=== PATIENT | male | born 1965 | race Caucasian/White ===

== ENCOUNTER 2016-12-30 11:17 | Day surgery (SDC) | payer OTHER ==
[2016-12-30] MEDS ORDERED: LR 1,000 ML IV ONE ×2 (12:05→12:35)
[2016-12-30 12:16] VITALS: PULSE 62
[2016-12-30] MEDS ORDERED: LIDOCAINE 1% 2 ML INJ ONE (12:18)
[2016-12-30] MEDS ORDERED: LIDOCAINE 1% 2 ML INJ ID PRN (12:35)
[2016-12-30] MEDS ORDERED: INDOMETHACIN 50 MG SUPP PR PRN (13:10)
--- NOTE | 2016-12-30 13:10 | PDGENHP ---
History & Physical Chief Complaint: rectal polyp History of Present Illness: 51 year old male presents for surveillance of a complex rectal polyp Pertinent Past, Social, Family History: PMHx: GERD Relevant Physical Exam: HEENT: anicteric. CV: RRR +s1s2. Lungs: CTAB. Abd: soft, nt, + bs Cardiorespiratory Assessment: ASA 2
[2016-12-30] MEDS ORDERED: PROPOFOL 200 MG/20 ML VIAL ONE (13:11)
[2016-12-30] MEDS ORDERED: NS 500 ML IV SCH (13:15)
--- NOTE | 2016-12-30 13:19 | PDANEPAE ---
ANE Past Medical History - Cardiovascular History Hx Hypertension: No Hx Arrhythmias: No Hx Chest Pain: No Hx Coronary Artery / Peripheral Vascular Disease: No Hx CHF / Valvular Disease: No Hx Palpitations: No - Pulmonary History Hx COPD: No Hx Asthma/Reactive Airway Disease: No Hx Recent Upper Respiratory Infection: No Hx Oxygen in Use at Home: No Hx Sleep Apnea: No Sleep Apnea Screening Result - Last Documented: Negative - Neurologic History Hx Cerebrovascular Accident: No Hx Seizures: No Hx Dementia: No - Endocrine History Hx Diabetes: No - Renal History Hx Renal Disorders: No - Liver History Hx Hepatic Disorders: No - Neurological & Psychiatric Hx Hx Neurological and Psychiatric Disorders: No - Cancer History Hx Cancer: No - Congenital Disorder History Hx Congenital Disorders: No - GI History Hx Gastrointestinal Disorders: Yes Gastrointestinal History Comment: HICCOUGHS - Other Health History Other Health History: CHILDHOOD ECZEMA - Chronic Pain History Chronic Pain: No - Surgical History Prior Surgeries: COLONOSCOPIES X2. KNEE ACL L X2 ANE Review of Systems Review of Systems: - Exercise capacity METS (RN): 5 METS ANE Patient History - Allergies Allergies/Adverse Reactions: No Known Allergies Allergy (Unverified 12/19/16 14:04) - Home Medications Home Medications: Ibuprofen 12/19/16 [Last Taken 12/22/16] Omeprazole 12/19/16 [Last Taken 12/28/16] - NPO status NPO Since - Liquids (Date): 12/29/16 NPO Since - Liquids (Time): 23:00 NPO Since - Solids (Date): 12/29/16 NPO Since - Solids (Time): 21:00 - Smoking Hx Smoking Status: Never smoked - Family Anes Hx Family Hx Anesthesia Complications: NEG ANE Labs/Vital Signs - Vital Signs Blood Pressure: 127/89 Heart Rate: 62 Respiratory Rate: 16 O2 Sat (%): 96 Height: 180.34 cm Weight: 79.379 kg ANE Physical Exam - Airway Neck exam: FROM Mouth exam: normal dental/mouth exam - Pulmonary Pulmonary: no respiratory distress, no rales or rhonchi, clear to auscultation - Cardiovascular Cardiovascular: regular rate and rhythym, no murmur, rub, or gallop - ASA Status ASA Status: II ANE Anesthesia Plan Anesthesia Plan: MAC
--- NOTE | 2016-12-30 13:27 | POSTOPPROG ---
Post Op Note Date of Operation: 12/30/16 Surgeon: Taiwo Sharma Anesthesia: IV Sedation Pre-op Diagnosis: rectal polyp Post-op Diagnosis: nl flex sig Indication: rectal polyp Procedure: flex sig Findings: nl flex sig Inf/Abcess present in the surg proc area at time of surgery?: No Specimen(s): none
--- NOTE | 2016-12-30 13:34 | POSTANESTH ---
Post Anesthetic Evaluation Cardiovascular Status: Normal, Stable, Similar to Pre-Op Cond Respiratory Status: Normal, Stable, Similar to Pre-op Cond. Level of Consciousness/Mental Status: Can Participate in Eval, Alert and Oriented Pain Control: Adequate, Prn Tx Ordered Nausea/Vomiting Control: Adequate, Prn Tx Ordered Complications Possibly Related to Anesthesia: None Noted
--- NOTE | 2016-12-30 13:35 | GIREPORT ---
[facility] - Endoscopy Department Patient Name: Arnaldo Braga Procedure Date: 12/30/2016 1:03 PM Patient Type: Outpatient Attending / CARTER Physician: Taiwo Sharma MD Procedure: Flexible Sigmoidoscopy Indications: High risk colon cancer surveillance: Personal history of colonic polyps Patient Profile: 51 year old male with a history of a complex rectal polyp presents for surveillance colonosocpy. Providers: Taiwo Sharma MD Medicines: Monitored Anesthesia Care Complications: No immediate complications. Findings: The perianal and digital rectal examinations were normal. Pertinent negatives include no palpable rectal lesions. The entire examined colon appeared normal. Estimated Blood Loss: Estimated blood loss: none. Post Op Diagnosis: - The entire examined colon is normal. - No specimens collected. Recommendation: - Discharge patient to home (with escort). - Perform a colonoscopy in 2 years. - Thank you for allowing me to participate in the care of your patient. Attending Participation: I personally performed the entire procedure. Taiwo Sharma MD Taiwo Sharma MD 12/30/2016 1:35:11 PM Number of Addenda: 0 Note Initiated On: 12/30/2016 1:03 PM Total Procedure Duration Time 0 hours 1 minute 54 seconds [email or web address]
[2016-12-30 14:06] VITALS: RESP 14; O2SAT 96
[2016-12-30 14:23] VITALS: TEMP 97.3
[2016-12-30 16:07] VITALS: BP 155/80
== END 2016-12-30 15:10 | disposition home or self-care (01) ==
LOC: FSGY 11:17
PROVIDERS: ATTEND Internal Medicine Gastroenterology
PROC: 0DJD8ZZ Inspection of Lower Intestinal Tract, Via Natural or Artificial Opening Endoscopic (ICD-10-PCS; principal; 2016-12-30 12:45)
DX: Z12.11 Encounter for screening for malignant neoplasm of colon (principal); K21.9 Gastro-esophageal reflux disease without esophagitis; Z86.010 Personal history of colon polyps
CPT/HCPCS: J2704

== ENCOUNTER → 2017-01-10 | Outpatient (CLI) | payer OTHER | LOC: FIMAGING 16:34 | PROVIDERS: ATTEND Surgery | DX: M79.604 Pain in right leg (principal); M79.605 Pain in left leg ==